=== PATIENT | female | born 1930 | race Caucasian/White ===

== ENCOUNTER 2019-08-18 09:36 | Inpatient (IN) | payer OTHER ==
[~2019-08-18] VITALS: Ht 152.4 cm; Wt 50.5 kg
[~2019-08-18 09:36] MED LIST: ALPRAZOLAM 0.0.25 MG; BENAZEPRIL HCL20 MG PO; CATAPRES-TTS 10.1 M1; D3 DOTS2000 UNIT PO; FISH OIL 1,2001 EAC4 PO; KEFLEX500 MG PO; MACROBID 100 M100 M1 PO; OMEPRAZOLE20 MG; PAXIL10 MG PO; PLAVIX 75 MG TA75 M1 PO; TOPROL XL25 MG PO; TYLENOL325 MG PO; ZOCOR20 MG PO
[2019-08-18 10:03] LABS: ABSOLUTE BASOPHILS 0.1 thou/uL (0.0-0.2); ABSOLUTE EOSINOPHILS 0.9 thou/uL (0.0-0.7); ABSOLUTE LYMPHOCYTES 1.9 thou/uL (0.8-5.3); ABSOLUTE MONOCYTES 0.8 thou/uL (0.0-1.2); ABSOLUTE NEUTROPHILS 5.8 thou/uL (1.6-8.1); BASOPHILS 1.2 %; EOSINOPHILS 9.5 %; HEMATOCRIT 39.6 % (37.0-47.0); HEMOGLOBIN 13.2 gm/dL (12.0-15.0); LYMPHOCYTES 20.1 %; MCH 28.4 pg (26.0-34.0); MCHC 33.2 g/dL (28.0-37.0); MCV 85.6 fL (80.0-100.0); MONOCYTES 8.7 %; NUCLEATED RBCS 0 /100WBC; PLATELET COUNT* 309 thou/uL (150-400); POLYS 60.5 %; RBC 4.63 mil/uL (4.20-5.00); RDW-CV 15.1 % (10.5-14.5); WBC 9.6 thou/uL (4.0-11.0)
[2019-08-18 10:22] VITALS: BP 206/132
[2019-08-18 10:37] LABS: PROTIME 10.4 Seconds (9.20-11.50)
[2019-08-18] MEDS ORDERED: [UNRECOGNIZED DRUG - OTHER] PO (10:39)
[2019-08-18] MEDS ORDERED: CALTRATE PLUS1 EACH PO (10:39)
[2019-08-18] MEDS ORDERED: COQ1050 MG PO (10:39)
[2019-08-18] MEDS ORDERED: PROBIOTIC1 EAC2 PO (10:39)
[2019-08-18 10:48] LABS: ALBUMIN 3.4 g/dL (3.4-5.0); CALCIUM 9.3 mg/dL (8.5-10.1); CREATININE 1.1 mg/dL (0.6-1.3); POTASSIUM 4.1 mmol/L (3.5-5.1); TOTAL BILIRUBIN 0.3 mg/dL (<0.1-1.0); TOTAL PROTEIN 7.3 g/dL (6.4-8.2)
--- NOTE | 2019-08-18 11:19 | NUR ---
PT SON, PADILLA, AT BEDSIDE STATING HE IS DPOA AND HAS CHANGED HIS MIND AND DECIDED HE DOES NOT WANT TPA AT THIS TIME.
[2019-08-18 14:12] VITALS: BP 183/76
--- NOTE | 2019-08-18 14:40 | NUR ---
er admit to 205 via cart patient transferred into bed and made comfortable admission hx and assmnt to be done
--- NOTE | 2019-08-18 15:15 | EKG ---
[place] [address] ELECTROCARDIOGRAM REPORT Name: CARRIE TOBIAS Room: [address] ADM IN M.R.#: [id number] Admission: 08/18/19 Attend Phys: Ellie Malin Discharge: Date of : 34 Report #: [id number] THIS REPORT FOR: //name// [facility] ED Test Date: 2019-08-18 Test Time: 10:11:17 Pat Name: CARRIE TOBIAS Department: Room: [facility] Gender: F [employer] [place]: : 1930 Requested By: Josue Murrell Order Number: [id number] MD: Al Corea Measurements Intervals Tyrone Rate: 67 P: 60 MN: 201 QRS: 22 QRSD: 152 T: 84 QT: 399 QTc: 422 Interpretive Statements Sinus rhythm Nonspecific intraventricular conduction delay Artifact in lead(s) I,II,III,aVR,aVL,aVF,V2 and baseline wander in lead(s) V6 Compared to ECG 05/21/2017 15:36:12 Left ventricular hypertrophy no longer present Electronically Signed On 08-18-2019 15:15:02 WIRELESS FIELD TECHNICIAN by Al Corea [email or web address] <ELECTRONICALLY SIGNED> By: Al Corea MD, FACC 08/18/19 1515 1011 1011 Al Corea MD, FACC /EPI
--- NOTE | 2019-08-18 16:40 | 2DMMODE ---
[place] [address] 2 D/M-MODE ECHOCARDIOGRAM Name: CARRIE TOBIAS Room: [address] ADM IN [place]#: [id number] Admission: 08/18/19 Attend Phys: Los Mcwilliams Discharge: Date of : 34 Date of Service: 08/18/19 [facility] Report #: [id number] THIS REPORT FOR: //name// APPROVED REPORT Study performed: 08/18/2019 15:48:08 EXAM: Comprehensive 2D, Doppler, and color-flow Echocardiogram Patient Location: In-Patient Room #: [facility] Status: routine BSA: 1.48 HR: 73 bpm BP: 183/76 mmHg Rhythm: NSR Other Information Study Quality: Good Indications CVA/TIA Echo Enhancing Agent Indication: Rule out Shunt Agent(s) / Amount(s) Used: Agitated Saline 10 cc 2D Dimensions IVSd: 9.95 (7-11mm) LVOT Diam: 18.69 (18-24mm) LVDd: 41.18 mm PWd: 11.01 (7-11mm) Ascending Ao: 25.81 (22-36mm) LVDs: 19.22 (25-40mm) Aortic Root: 26.56 mm Volumes Left Atrial Volume (Systole) LA ESV Index: 24.90 mL/m2 Aortic Valve AoV Peak Gennaro.: 1.30 m/s AO Peak Gr.: 6.71 mmHg LVOT Max P.52 mmHg AO Mean Gr.: 3.59 mmHg LVOT Mean P.82 mmHg LVOT Max V: 0.94 m/s AO V2 VTI: 25.71 cm LVOT Mean V: 0.63 m/s SONIA (VTI): 2.29 cm2 LVOT V1 VTI: 21.45 [place] [address] 2 D/M-MODE ECHOCARDIOGRAM Name: CARRIE TOBIAS Room: [address] IN .R.#: [id number] Admission: 08/18/19 Attend Phys: Los Mcwilliams Discharge: Date of : 34 Date of Service: 08/18/19 [facility] Report #: [id number] Mitral Valve E/A Ratio: 0.73 MV Decel. Time: 211.34 ms MV E Max Gennaro.: 0.81 m/s MV PHT: 61.29 ms MVA (PHT): 3.59 cm2 TDI E/Lateral E': 10.13 E/Medial E': 10.13 Medial E' Gennaro.: 0.08 m/s Lateral E' Gennaro.: 0.08 m/s Pulmonary Valve PV Peak Gennaro.: 0.81 m/s PV Peak Gr.: 2.64 mmHg Tricuspid Valve RAP Estimate: 5.00 mmHg TR Peak Gr.: 19.04 mmHg RVSP: 24.00 mmHg PA Pressure: 24.00 mmHg Left Ventricle The left ventricle is normal size. There is normal LV segmental wall motion. There is normal left ventricular wall thickness. Left ventricular systolic function is normal. The left ventricular ejection fraction is within the normal range. LVEF is 60-65%. Grade I - abnormal relaxation pattern. Right Ventricle The right ventricle is normal size. The right ventricular systolic function is normal. Atria The left atrium size is normal. Interatrial septum is intact without evidence of ASD or PFO. The right atrium size is normal. Aortic Valve Mild aortic valve sclerosis. No aortic regurgitation is present. There is no aortic valvular stenosis. Mitral Valve The mitral valve is normal in structure. Mild mitral regurgitation. No evidence of mitral valve stenosis. Tricuspid Valve The tricuspid valve is normal in structure. Trace tricuspid regurgitation. estimated pa pressure 25 [place] [address] 2 D/M-MODE ECHOCARDIOGRAM Name: CARRIE TOBIAS Room: [address] IN ..#: [id number] Admission: 08/18/19 Attend Phys: Los Mcwilliams Discharge: Date of : 34 Date of Service: 08/18/19 [facility] Report #: [id number] Pulmonic Valve Pulmonic valve is not well visualized. Mild pulmonic regurgitation. Great Vessels The aortic root is normal in size. IVC is normal in size and collapses >50% with inspiration. Pericardium There is no pericardial effusion. <Conclusion> LVEF is 60-65%. Mild aortic valve sclerosis. Mild mitral regurgitation. Interatrial septum is intact without evidence of ASD or PFO. <ELECTRONICALLY SIGNED> By: Al Corea MD, FACC 08/18/19 1640 1640 1640 Al Corea MD, FACC /INF
[2019-08-18 20:00] VITALS: BP 191/82
[2019-08-19 01:00] VITALS: BP 192/70
--- NOTE | 2019-08-19 04:54 | NUR ---
PT ALERT BUT NONVERBAL. DOES APPEAR TO BE ANXIOUS REACHING FOR HAND TO HOLD. FAMILY AT BEDSIDE. RIGHT SIDE WEAKNESS, NIH AT 13 CURRENTLY. REMAINS NPO AND Q2H TURN. PROVIDING REASSURANCE TO PT AND EDUCATION TO FAMILY. DOES NOT APPEAR TO BE IN ANY PAIN OR DISCOMPRT AT THIS TIME.
[2019-08-19 04:58] VITALS: BP 199/81
[2019-08-19 05:33] LABS: ALKALINE PHOSPHATASE 56 U/L (46-116); ANION GAP 7 mmol/L (7-16); BUN 15 mg/dL (7-18); CALCIUM 8.9 mg/dL (8.5-10.1); CHLORIDE 104 mmol/L (98-107); CHOLESTEROL 172 mg/dL (<200); CO2 28 mmol/L (21-32); GLUCOSE 107 mg/dL (70-99); HDL CHOLESTEROL 43 mg/dL (>40); LDL CHOLESTEROL 115 mg/dL (<100); SGOT 22 U/L (15-37); SGPT 17 U/L (30-65); SODIUM 139 mmol/L (136-145); TOTAL BILIRUBIN 0.4 mg/dL (<0.1-1.0); TOTAL PROTEIN 6.5 g/dL (6.4-8.2); TRIGLYCERIDE 70 mg/dL (<150); VLDL 14 mg/dL (<40)
[2019-08-19 05:37] LABS: SERUM ASSESSMENT Clear
--- NOTE | 2019-08-19 07:20 | NUR ---
CHANGE OF SHIFT, BEDSIDE REPORT GIVEN PATIENT SEEN AT BEDSIDE, IN BED ASLEEP ASSUMED PATIENT CARE
[2019-08-19 08:00] VITALS: BP 167/69
[2019-08-19 12:03] VITALS: BP 161/65
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
[2019-08-19 17:23] VITALS: BP 92/64
[2019-08-19 20:00] VITALS: BP 181/79
[2019-08-20] VITALS: BP 179/72
[2019-08-20 02:06] LABS: GLYCOHEMOGLOBIN (HGB A1C) 5.2 % (4.8-5.6)
[2019-08-20 04:00] VITALS: BP 187/79
--- NOTE | 2019-08-20 04:45 | NUR ---
PT CONTINUES TO BE NONVERBAL. DOESNT APPEAR TO BE IN ANY DISTRESS. Q2H TURNS. FAMILY AT BEDSIDE, ENCOURAGING PT TO COUGH TO CHEAR THROAT. DIFFICULTY FOLLOWING COMMAND, KEEPING HOB ELEVATED, SATS WNL. PT IN BED WITH CALL LIGHT WITHIN REACH.
[2019-08-20 08:00] VITALS: BP 187/84
[2019-08-20 12:00] VITALS: BP 191/95
[2019-08-20 15:48] VITALS: BP 168/78
--- NOTE | 2019-08-20 16:25 | NUR ---
Long discussion had with family, per Pt's advanced directive, she does not want a peg tube. Plan is to proceed with hospice. Granddtr contacted [facility]. Order written. CM discussed the difference b/t hospice house v LTC with hospice. LTC facility list provided. CM to discuss LTC choice with family tomorrow.
[2019-08-20 20:00] VITALS: BP 182/86
[2019-08-21] VITALS: BP 191/82
--- NOTE | 2019-08-21 04:05 | NUR ---
PT NON-VERBAL BUT MAKES EYE CONTACT. Q2 HR TURN. STRICT NPO. PT DOES NOT APPEAR TO BE IN ANY PAIN. DR NOTIFIED OF BP AND ORDERED PRN HYDRALAZINE-GIVEN. SON IN ROOM OFF AND ON THROUGH THE NIGHT. CALL LIGHT IN REACH. HOURLY ROUNDING FOR SAFETY.
[2019-08-21 04:11] VITALS: BP 174/78
--- NOTE | 2019-08-21 13:01 | NUR ---
CM spoke with bobr, family has chosen [place], [facility], [facility] and [facility]. Referrals faxed, [facility] cannot accept because Pt does not currently have [place] [facility]. Awaiting to hear back from other facilities. CM left message for Mona at [facility] to come and complete JAIRON lorenzo with DPOA. Following.
--- NOTE | 2019-08-21 14:50 | NUR ---
ASSUMED PT CARE AT 0800, NON VERBAL, AWAKE, O2 SAT 90'S RA. PT WAITING FOR PLACEMENT. CM ON BOARD. VSS, HOURLY ROUNDING, WILL CONTINUE TO MONITOR.
[2019-08-21 15:40] VITALS: BP 163/71
[2019-08-21 21:46] VITALS: BP 145/56
[2019-08-22 04:00] VITALS: BP 169/61
--- NOTE | 2019-08-22 06:29 | NUR ---
PATIENT PARTIALLY PROGRESSING TOWARDS GOALS: ABLE TO SHAKE HEAD "YES" AND "NO" FOR SIMPLE QUESTIONS. DENIES PAIN. REMAINS INCONTINENT. [facility] PROVIDED WITH INCONTINENCE CHECKS AND REPOSITIONING. PATIENT'S DAUGHTER AT BEDSIDE THROUGHOUT SHIFT. PENDING INSURANCE AUTH FOR DC. CALL LIGHT WITHIN REACH
--- NOTE | 2019-08-22 07:29 | NUR ---
CM received a call from Farrah at [facility]. They are able to accept Pt for LTC today with [facility]. CM to discuss with family. Plan dc today.
--- NOTE | 2019-08-22 10:10 | NUR ---
PT TRANSFERRED TO UNIT. I AGREE WITH MORNING ASSESSMENT. FALL RISK PRECAUTIONS IN PLACE. WILL CONTINUE TO MONITOR.
--- NOTE | 2019-08-22 12:16 | EEG ---
[address] [address] EEG STUDY REPORT Name: TOBIASCARRIE Room: [address] IN M.R.#: [id number] Admission: 08/18/19 Attend Phys: Ellie Malin Discharge: Date of : 34 Report #: [id number] THIS REPORT FOR: //name// CC: Ranjith Mcwilliams DATE OF SERVICE: 08/18/2019 This patient is being evaluated for altered mental status. EEG was done by placing the electrode by standard 10-20 system of electrode placement. Both referential and sequential montages were used for recording. Background activity in this patient's EEG is about 8 Hz and 30 microvolts. A lot of muscle artifact is present making the interpretation of this EEG very difficult. Photic stimulation was unremarkable. Throughout the record, no active epileptiform activity was noticed. IMPRESSION: This patient's EEG is intermixed with theta range slowing on both sides. That is a nonspecific abnormality, which can occur with encephalopathy, dementia, effect of psychotropic medication, etc. A lot of artifact is present making the interpretation of this EEG very difficult. Thank you very much for this referral. <ELECTRONICALLY SIGNED> By: Onesimo Cruz MD 08/22/19 1216 0922 [id number] Cruz MD /nt
[2019-08-22 13:27] VITALS: BP 169/61
[2019-08-22 13:29] VITALS: BP 169/61
[2019-08-22 13:30] VITALS: BP 169/61
--- NOTE | 2019-08-22 13:41 | NUR ---
Pt discharging to [facility] today with [facility]. Ambulance to picker and transport at 3pm. Updated granddaughter in the room. Chart copied. Nurse report is [phone]. Updated granddtr in room, granddtr to update son/Wing.
[2019-08-22 16:18] VITALS: BP 169/61
--- NOTE | 2019-08-22 16:18 | NUR ---
PT CHART COPIED. IV REMOVED. PT BLEONGINGS GATHERED. PT ELFT WITH AMBULANCE TO HOSPICE. FALL RISK PRECAUTIONS IN PLACE. HOURLY ROUNDING COMPLETED.
== END 2019-08-22 16:18 | disposition hospice, inpatient (51) | DRG 64 ==
LOC: M.ERS 09:36 → M.2W 11:31 → M.TBA-ER 11:31 → M.2W 14:50 → M.ORTHSURG 08-22 10:05
PROVIDERS: Emergency Medicine; ADMIT Internal Medicine
DX: I63.9 Cerebral infarction, unspecified (principal); G93.41 Metabolic encephalopathy; I16.1 Hypertensive emergency; G81.91 Hemiplegia, unspecified affecting right dominant side; K59.00 Constipation, unspecified; E78.5 Hyperlipidemia, unspecified; E77.8 Other disorders of glycoprotein metabolism; Z79.82 Long term (current) use of aspirin; Z79.899 Other long term (current) drug therapy; Z28.21 Immunization not carried out because of patient refusal; Z90.49 Acquired absence of other specified parts of digestive tract; Z86.73 Personal history of transient ischemic attack (TIA), and cerebral infarction without residual deficits; Z88.8 Allergy status to other drugs, medicaments and biological substances